=== PATIENT | female | born 1985 | race Caucasian/White ===

== ENCOUNTER 2017-08-16 10:32 | Emergency (ER) | payer SELFPAY ==
[~2017-08-16] VITALS: Ht 157.5 cm; Wt 50.0 kg
[~2017-08-16 10:32] MED LIST: ORTHOTRICYCLEN PO; PROZ40CA PO
[2017-08-16 10:48] VITALS: BP 130/79; PULSE 99; RESP 16; TEMP 98; O2SAT 100
--- NOTE | 2017-08-16 11:04 | PD ---
HPI Chief Complaint: Eye Problems/Injury Time Seen by Provider: 11:02 Travel History International Travel<30 days: No Contact w/Intl Traveler<30days: No Traveled to known affect area: No History of Present Illness HPI 31-year-old female here for evaluation of left eye pain and blurry vision. Symptoms started when she woke up this morning. She felt a sandpaper/grit sensation in her left eye. Pain is 7 out of 10, improved with holding ice over her eye. She does not wear contacts or use glasses. Several years ago she reports having a viral keratitis in her eye requiring several different eyedrops. No other significant eye history. PFSH Past Medical History Anemia: Yes (EXERCISE INDUCED ) Asthma: Yes (EXERCISE INDUCED) Bipolar Disorder: Yes Depression: Yes (MDD) Diminished Hearing: No Psychiatric: Yes (BIPOLOR, DEPRESSION, EATING DISORDER) Migraines: Yes Tetanus Vaccination: Unknown Influenza Vaccination: No ?: Not LMP: YEST : 0 Past Surgical History Oral Surgery: Yes (WISDOM TEETH REMOVED) Social History Alcohol Use: Yes (3x/wk) Tobacco Use: No Substance Use: No Allergies-Medications (Allergen,Severity, Reaction): Coded Allergies: sulfamethoxazole (Unverified Allergy, Mild, vag. swelling , itching , burning ., 08/16/17) trimethoprim (Unverified Allergy, Mild, vag. swelling , itching , burning ., 08/16/17) Reported Meds & Prescriptions Reported Meds & Active Scripts Active [OrthoTriCyclen] 1 Tab PO DAILY Dispense 1 pack. Take as directed. Prozac (Fluoxetine HCl) 40 Mg Cap 40 Tab PO DAILY Review of Systems Except as stated in HPI: all other systems reviewed are Neg Physical Exam Narrative GENERAL: Well-developed, well-nourished, comfortable, no apparent distress. SKIN: Focused skin assessment warm/dry. HEAD: Atraumatic. Normocephalic. EYES: Pupils equal, round, 3 mm, reactive to light. EOMI. No proptosis. Left conjunctival and scleral injection. Bilateral corneas are clear without clouding, no hyphema, no hypopyon. No discharge. Visual acuity is 20/70 in the left eye, 20/25 in the right eye, 20/25 in bilateral eyes. Pressure in the left eye is 15 mmHg, 17 mmHg in the right eye. Floor seen stain of the left eye shows a crescent shape corneal abrasion over the mid cornea approximately 4 mm. no dendritic lesions. Negative Manuel sign. NEUROLOGICAL: Awake and alert. No obvious cranial nerve deficits. Motor grossly within normal limits. Normal speech. PSYCHIATRIC: Appropriate mood and affect; insight and judgment normal. Data Data Last Documented VS Vital Signs Date Time Temp Pulse Resp B/P (MAP) Pulse Ox O2 Delivery O2 Flow Rate FiO2 08/16/17 10:48 98.0 99 16 130/79 (96) 100 Orders Orders Proparacaine 0.5% Opth Soln (Alcaine 0.5 (08/16/17 11:15) Fluorescein Strip (Exhrg-O-Vlytuq A.T.) (08/16/17 11:15) MDM Medical Decision Making Medical Screen Exam Complete: Yes Emergency Medical Condition: Yes Differential Diagnosis Corneal abrasion, keratitis, conjunctivitis Narrative Course EYES: Pupils equal, round, 3 mm, reactive to light. EOMI. No proptosis. Left conjunctival and scleral injection. Bilateral corneas are clear without clouding, no hyphema, no hypopyon. No discharge. Visual acuity is 20/70 in the left eye, 20/25 in the right eye, 20/25 in bilateral eyes. Pressure in the left eye is 15 mmHg, 17 mmHg in the right eye. Floor seen stain of the left eye shows a crescent shape corneal abrasion over the mid cornea approximately 4 mm. Negative Manuel sign. Patient has a corneal abrasion of her left eye. She will be started on antibiotic eyedrops. Tetanus updated. She was advised to follow-up with an manager store in the next 1-2 days. She was informed on when to return to the emergency department. She verbalizes understanding and agreement with plan. Diagnosis Primary Impression: Corneal abrasion Qualified Codes: S05.02XA - Injury of conjunctiva and corneal abrasion without foreign body, left eye, initial encounter Referrals: Ama Arce MD 1 day [facility] Additional Instructions: Follow-up with manager store Dr. Arce or manager store of your choice in the next 1-2 days. Use antibiotic eyedrops as prescribed. Return to the emergency department for worsening symptoms or any other concerns. Scripts Ofloxacin Opth Drops (Ocuflox Opth Drops) 0.3 % Drops 1 DROP LEFT EYE Q6HR for Infection for 7 Days, #1 BOTTLE 0 Refills Prov: Jason Parrish MD 08/16/17 Disposition: 01 DISCHARGE HOME Condition: Stable Jason Parrish MD Aug 16, 2017 11:04
[2017-08-16] MEDS ORDERED: PROPARACAINE HCL 0.5% OPHT SOLN 15 ML BTL LEFT EYE ONE (11:15)
[2017-08-16] MEDS ORDERED: FLUORESCEIN SOD 1 MG STRIP LEFT EYE ONE (11:15)
[2017-08-16] MEDS ORDERED: OCUF0.3D LEFT EYE (11:24)
[2017-08-16] MEDS ORDERED: OFLOXACIN 0.3% OPTH SOLN 5 ML BTL LEFT EYE ONE (11:30)
[2017-08-16] MEDS ORDERED: TETANUS/DIPHTHERIA TOXOID ADULT 0.5 ML VIAL IM ONE (11:30)
== END 2017-08-16 11:36 | disposition home or self-care (01) ==
LOC: PHED 10:32
DX: S05.02XA Injury of conjunctiva and corneal abrasion without foreign body, left eye, initial encounter (principal); J45.909 Unspecified asthma, uncomplicated; F31.9 Bipolar disorder, unspecified; Z23 Encounter for immunization
CPT/HCPCS: 90471; 90714